=== PATIENT | female | born 1990 | race Caucasian/White ===

== ENCOUNTER 2020-03-26 18:25 | Emergency (ER) | payer OTHER ==
[~2020-03-26] VITALS: Ht 154.9 cm; Wt 99.8 kg
[2020-03-26] MEDS ORDERED: KETO10TA2 PO (23:25)
== END 2020-03-27 00:10 | disposition home or self-care (01) ==
LOC: ER 18:25
DX: S80.02XA Contusion of left knee, initial encounter (principal); S80.01XA Contusion of right knee, initial encounter; S90.01XA Contusion of right ankle, initial encounter; X50.1XXA Overexertion from prolonged static or awkward postures, initial encounter; W01.198A Fall on same level from slipping, tripping and stumbling with subsequent striking against other object, initial encounter; Y93.01 Activity, walking, marching and hiking; Y92.89 Other specified places as the place of occurrence of the external cause; Y99.8 Other external cause status